=== PATIENT | female | born 1945 | race Caucasian/White ===

== ENCOUNTER 2016-08-02 20:21 | Inpatient (IN) | payer OTHER, MEDICARE ==
--- NOTE | 2016-08-02 20:49 | EDPHY ---
H & P Stated Complaint: converted from SVT Time Seen by Provider: 08/02/16 20:45 HPI/ROS: CHIEF COMPLAINT: Palpitations after shoveling snow HISTORY OF PRESENT ILLNESS: The patient is referred to the emergency department from [facility]. She reportedly developed palpitations after shoveling snow this afternoon. She had no complaints of chest pain or shortness of breath. She initially went to her primary care provider who ultimately refer the patient to the emergency department in [place]. While she was at the emergency department in [place] the patient was noted to be in a possible SVT. The patient received 6 mg and 12 mg of adenosine. She appeared to be an atrial arrhythmia versus sinus tachycardia following that intervention. Additionally, the patient was given the atenolol. The patient's heart rate never did couple 0 120. She was also noted to have some ST segment depression. The patient was also noted to have an indeterminately elevated troponin of 0.216. Given the sum total of these findings, the patient was referred to our institution for inpatient admission at cardiac evaluation. At the time of my interview, the patient is now in a normal sinus rhythm in the 60s. She continues to deny any chest pain or shortness of breath. I reviewed her past medical records. REVIEW OF SYSTEMS: A comprehensive 10 point review of systems is otherwise negative aside from elements mentioned in the history of present illness. - Personal History Current Tetanus/Diphtheria Vaccine: Yes Current Tetanus Diphtheria and Acellular Pertussis (TDAP): Yes - Medical/Surgical History Hx Asthma: No Hx Chronic Respiratory Disease: No Hx Diabetes: No Hx Cardiac Disease: Yes Hx Renal Disease: No Hx Cirrhosis: No Hx Alcoholism: No Hx HIV/AIDS: No Hx Splenectomy or Spleen Trauma: No Other PMH: PMH: Colitis, Anxiety, hypothyriodism, dizziness, vertigo, palpitations. PSH: n/a - Social History Smoking Status: Former smoker - Physical Exam Exam: General Appearance: Alert, no distress Eyes: Pupils equal and round no pallor or injection ENT, Mouth: Mucous membranes moist Respiratory: There are no retractions, lungs are clear to auscultation Cardiovascular: Regular rate and rhythm Gastrointestinal: Abdomen is soft and nontender, no masses, bowel sounds normal Neurological: A&O, normal motor function, normal sensory exam, normal cranial nerves Skin: Warm and dry, no rashes Musculoskeletal: Neck is supple nontender Extremities: symmetrical, full range of motion Psychiatric: Patient is oriented X 3, there is no agitation Constitutional: Initial Vital Signs Temperature (C) 37.4 C 08/02/16 20:35 Heart Rate 65 08/02/16 20:35 Respiratory Rate 18 08/02/16 20:35 Blood Pressure 172/97 H 08/02/16 20:35 O2 Sat (%) 95 08/02/16 20:35 O2 Delivery Mode Room Air Allergies/Adverse Reactions: NSAIDS (Non-Steroidal Anti-Inflamma Allergy (Verified 08/02/16 20:39) Home Medications: Medication Instructions Recorded Atenolol [Tenormin 25 mg (*)] 37.5 mg PO DAILY 08/02/16 LORazepam [Ativan (*)] 0.5 - 1 mg PO TID PRN 08/02/16 Omeprazole 20 mg PO DAILY 08/02/16 Polyvinyl Alcohol [Artificial 2 drop EACHEYE QID PRN 08/02/16 Tears] Medical Decision Making - Diagnostics EKG Interpretation: EKG: Complete interpretation has been separately recorded in the [employer] archive. Summary impression: Sinus rhythm, no ST segment elevation, minimal depression noted in lead III. ED Course/Re-evaluation: I reviewed the patient's past medical records, she had a troponin of 0.216 noted at 5:30 a.m. this afternoon. A repeat troponin has been ordered. The patient was noted to have a slightly elevated TSH of 11.4. I will add on a T3 level. The patient did have a negative D-dimer test which I feel adequately excludes pulmonary embolism. Repeat EKG demonstrates no evidence of an arrhythmia or evidence of ST segment elevation myocardial infarction. The patient will be admitted to the hospital for observation this evening. I discussed the case with Dr. Ayala from the hospitalist service will admit the patient. Dr. Samuels from cardiology has already been notified by the referring Center at [place] and plans to see the patient tomorrow. Differential Diagnosis: Differential diagnosis considered includes atrial fibrillation, ventricular tachycardia, myocardial infarction, pulmonary embolism, acute coronary syndrome , SVT - Data Points Laboratory Results: 08/02/16 20:50 Troponin I Pending Departure - Departure Disposition: [facility] Inpatient Acute Clinical Impression: Tachycardia, Cardiac enzymes elevated Condition: Good
--- NOTE | 2016-08-02 20:51 | CPEKG ---
Heart Rate: 62 RR Interval: 968 P-R Interval: 216 QRSD Interval: 92 QT Interval: 432 QTC Interval: 439 P [place]: 81 QRS [place]: 60 T Wave [place]: 30 EKG Severity - NORMAL ECG - EKG Impression: SINUS RHYTHM Electronically Signed By: Von Meyers 02-Aug-2016 21:03:00
[2016-08-02 21:22] LABS: TROPONIN I 0.389 ng/mL (0-0.034)
[2016-08-02 23:08] LABS: % IMMATURE GRANULYOCYTES 0.3 % (0.0-1.1); ABSOLUTE IMMATURE GRANULOCYTES 0.02 10^3/uL (0.00-0.10); ADD DIFF? NO; ADD MORPH? NO; ADD SCAN? NO; ATYPICAL LYMPHOCYTE FLAG 10 (0-99); FRAGMENT RBC FLAG 0 (0-99); HEMATOCRIT 38.7 % (38.0-47.0); HEMOGLOBIN 13.7 g/dL (12.6-16.3); LEFT SHIFT FLG 0 (0-99); LIPEMIA HEMOLYSIS FLAG 90 (0-99); MEAN CELL HEMOGLOBIN 34.8 pg (27.9-34.1); MEAN CELL HEMOGLOBIN CONCENTR. 35.4 g/dL (32.4-36.7); MEAN CELL VOLUME 98.2 fL (81.5-99.8); MEAN PLATELET VOLUME 8.7 fL (8.7-11.7); PLATELET CLUMPS FLAG 0 (0-99); PLATELET COUNT 263 10^3/uL (150-400); RED BLOOD CELL COUNT 3.94 10^6/uL (4.18-5.33); RED CELL DISTRIBUTION WIDTH 11.4 % (11.5-15.2)
[2016-08-02 23:21] LABS: ANION GAP 11 mEq/L (8-16); CALCIUM 8.8 mg/dL (8.5-10.4); CARBON DIOXIDE 23 mEq/l (22-31); CHLORIDE 100 mEq/L (97-110); CREATININE 0.7 mg/dL (0.6-1.0); GLOMERULAR FILTRATION RATE > 60; GLUCOSE 103 mg/dL (70-100); MAGNESIUM 1.9 mg/dL (1.6-2.3); POTASSIUM 4.3 mEq/L (3.5-5.2); SODIUM 134 mEq/L (134-144)
[2016-08-02] MEDS ORDERED: ONDANSETRON 4 MG/2 ML VIAL IVP PRN (23:39)
[2016-08-02] MEDS ORDERED: ONDANSETRON DISINTEGRATING 4 MG TAB PO PRN (23:39)
[2016-08-02] MEDS ORDERED: LORazepam 0.5 MG TAB PO PRN (23:39)
[2016-08-02] MEDS ORDERED: NS 1,000 ML IV SCH (23:45)
[2016-08-03] MEDS: ENOXAPARIN 60 MG/0.6 ML SYR SC SCH ×3 (00:14→16:01)
[2016-08-03 00:45] LABS: COLOR YELLOW; LEUKOCYTE ESTERASE,URINE TRACE (NEGATIVE); NITRITE,URINE NEGATIVE (NEGATIVE)
--- NOTE | 2016-08-03 03:37 | PDGENHP ---
History and Physical - Chief Complaint palpitations - History of Present Illness Pt is 71/F with of HTN and anxiety who presented to the ED with heart palpitations after shoveling snow earlier today. She describes it as pounding sensation in her substernal region radiating to her neck. Denies any associated headache, syncope or dizziness, chest pain, shortness of breath or nausea. She took 1mg lorazepam by mouth which did not improve her symptoms. She then visited [facility] medical clinic, was transferred to urgent care, where vital signs were significant for tachycardia, so she was then transferred to the [place] [facility]. Upon arrival to the [place] [facility], VS were significant for HR 120s-140s, BP 160s /90s. EKG revealed a narrow complex tachycardia, with evidence of ST depressions inferiorly. Valsalva movements attempted without success, so she was given 1L NS, 6mg and then 12 mg adenosine and then her home dose of atenolol with improvement of HR to 60 range. Repeat EKG revealed normal sinus rhythm. Labs revealed indeterminately elevated troponin (0.212), otherwise normal CBC, BMP and CXR. Patient was then given Aspirin and treatment dosed lovenox and transferred to the [facility] ED. Upon arrival to the [facility] ED, patients VS remain wnl (HR 60s, BP stable, afebrile) . Repeat troponin had slightly uptrended. She was then admitted to the hospitalist service for further management. History Information - Allergies/Home Medication List Allergies/Adverse Reactions: NSAIDS (Non-Steroidal Anti-Inflamma Allergy (Verified 08/02/16 20:39) Home Medications: Atenolol [Tenormin 25 mg (*)] 37.5 mg PO DAILY 08/02/16 [Last Taken 08/02/16] LORazepam [Ativan (*)] 0.5 - 1 mg PO TID PRN 08/02/16 [Last Taken 08/02/16 16: 00 0.5mg] Omeprazole 20 mg PO DAILY 08/02/16 [Last Taken 08/02/16] Polyvinyl Alcohol [Artificial Tears] 2 drop EACHEYE QID PRN 08/02/16 [Last Taken 08/02/16] I have personally reviewed and updated: family history, medical history, social history, surgical history - Past Medical History Additional medical history: Hypertension. GERD. Microscopic colitis. Anxiety disorder. History of BPPV - Surgical History Additional surgical history: Tubal ligation - Family History Additional family history: Father: Mi at 70 - Social History Smoking Status: Former smoker (Distant history of smoking, quit 40 years ago) Alcohol Use: None Drug Use: None Additional social history: Patient lives in [place] alone, is independent in all ADLs. Daughter is rn case manager who works at [employer] Review of Systems ROS: 10pt was reviewed & negative except for what was stated in HPI & below Physical Exam Temp Pulse Resp BP Pulse Ox 36.6 C 66 16 152/89 H 95 08/03/16 00:00 08/03/16 00:00 08/03/16 00:00 08/03/16 00:00 08/03/16 00:00 Constitutional: no apparent distress, appears nourished, not in pain Eyes: PERRL, anicteric sclera, EOMI Ears, Nose, Mouth, Throat: moist mucous membranes, hearing normal, ears appear normal, no oral mucosal ulcers Cardiovascular: regular rate and rhythym, no murmur, rub, or gallop, pulses symmetric bilaterally, No JVD, No tachycardia, No edema Peripheral Pulses: 2+: dorsalis-pedis (R), dorsalis-pedis (L) Respiratory: no respiratory distress, no rales or rhonchi, clear to auscultation Gastrointestinal: normoactive bowel sounds, soft, non-tender abdomen, no palpable masses Genitourinary: no bladder fullness, no bladder tenderness Skin: warm, normal color, no rashes or abrasions, no fluctuance, No mottled Musculoskeletal: full muscle strength, no muscle tenderness, normal joint ROM, no joint effusions Neurologic: AAOx3, sensation intact bilaterally, CN II-XII Intact, No weakness, No numbness Psychiatric: interacting appropriately, not anxious, not encephalopathic, thought process linear Lab Data & Imaging Review 08/03/16 04:11 08/02/16 23:01 WBC 7.37 10^3/uL (3.80-9.50) 08/02/16 23:01 RBC 3.94 10^6/uL (4.18-5.33) L 08/02/16 23:01 Hgb 13.7 g/dL (12.6-16.3) 08/02/16 23:01 Hct 38.7 % (38.0-47.0) 08/02/16 23: MCV 98.2 fL (81.5-99.8) 08/02/16 23: MCH 34.8 pg (27.9-34.1) H 08/02/16 23: MCHC 35.4 g/dL (32.4-36.7) 08/02/16 23: RDW 11.4 % (11.5-15.2) L 08/02/16 23: Plt Count 263 10^3/uL (150-400) 08/02/16 23: MPV 8.7 fL (8.7-11.7) 08/02/16 23: Neut % (Auto) 67.6 % (39.3-74.2) 08/02/16 23: Lymph % (Auto) 22.9 % (15.0-45.0) 08/02/16 23: [place] % (Auto) 7.9 % (4.5-13.0) 08/02/16 23: Eos % (Auto) 0.4 % (0.6-7.6) L 08/02/16 23: Baso % (Auto) 0.9 % (0.3-1.7) 08/02/16 23: Nucleat RBC Rel Count 0.0 % (0.0-0.2) 08/02/16 23: Absolute Neuts (auto) 4.98 10^3/uL (1.70-6.50) 08/02/16 23: Absolute Lymphs (auto) 1.69 10^3/uL (1.00-3.00) 08/02/16 23: Absolute Monos (auto) 0.58 10^3/uL (0.30-0.80) 08/02/16 23: Absolute Eos (auto) 0.03 10^3/uL (0.03-0.40) 08/02/16 23: Absolute Basos (auto) 0.07 10^3/uL (0.02-0.10) 08/02/16 23: Absolute Nucleated RBC 0.00 10^3/uL (0-0.01) 08/02/16 23:01 Immature Gran % 0.3 % (0.0-1.1) 08/02/16 23:01 Immature Gran # 0.02 10^3/uL (0.00-0.10) 08/02/16 23:01 Sodium 134 mEq/L (134-144) 08/02/16 23:01 Potassium 4.3 mEq/L (3.5-5.2) 08/02/16 23:01 Chloride 100 mEq/L (97-110) 08/02/16 23:01 Carbon Dioxide 23 mEq/l (22-31) 08/02/16 23:01 Anion Gap 11 mEq/L (8-16) 08/02/16 23:01 BUN 13 mg/dL (7-23) 08/02/16 23:01 Creatinine 0.7 mg/dL (0.6-1.0) 08/02/16 23:01 Estimated GFR > 60 08/02/16 23:01 Glucose 103 mg/dL (70-100) H 08/02/16 23:01 Calcium 8.8 mg/dL (8.5-10.4) 08/02/16 23:01 Magnesium 1.9 mg/dL (1.6-2.3) 08/02/16 23:01 Troponin I 0.389 ng/mL (0-0.034) H 08/02/16 20:50 Free T3 4.96 pg/mL (2.77-5.27) 08/02/16 23:01 Total T3 1.250 ng/mL (0.970-1.690) 08/02/16 23:01 Urine Color YELLOW 08/03/16 00:15 Urine Appearance CLEAR 08/03/16 00:15 Urine pH 7.0 (5.0-7.5) 08/03/16 00:15 Ur Specific [place] 1.010 (1.002-1.030) 08/03/16 00:15 Urine Protein NEGATIVE (NEGATIVE) 08/03/16 00:15 Urine Ketones 1+ (NEGATIVE) H 08/03/16 00:15 Urine Blood NEGATIVE (NEGATIVE) 08/03/16 00:15 Urine Nitrate NEGATIVE (NEGATIVE) 08/03/16 00:15 Urine Bilirubin NEGATIVE (NEGATIVE) 08/03/16 00:15 Urine Urobilinogen NEGATIVE EU (0.2-1.0) 08/03/16 00:15 Ur Leukocyte Esterase TRACE (NEGATIVE) H 08/03/16 00:15 Urine RBC 1-3 /hpf (0-3) 08/03/16 00:15 Urine WBC 3-5 /hpf (0-3) H 08/03/16 00:15 Ur Epithelial Cells TRACE /lpf (NONE-1+) 08/03/16 00:15 Urine Glucose NEGATIVE (NEGATIVE) 08/03/16 00:15 Visualized and Interpreted Chest x-ray results: Yes Chest X-Ray results: normal (CD in chart) Visualized and Interpreted EKG results: Yes EKG additional interpertation: Initially [place] EKG: Narrow complex tachycardia @ [address] depressions in V4-V6, II, III, aVF. [facility] EKG: NSR at 62 bpm, normalization of all ST/T wave changes seen in first EKG Assessment & Plan Assessment: Patient is a 71-year-old female with history of hypertension, anxiety disorder, GERD who presents to the ED complaining of palpitations. Was found to be in narrow complex tachycardia to the 130 range with associated ischemic EKG changes and elevation in troponin. Tachyarrhythmia resolved with adenosine and EKG changes resolved . Plan: #narrow complex tachycardia Exertion induced tachycardia with symptoms of palpitations. Has resulted in ischemic EKG changes and elevated troponin. EKG abnormalities resolved with improvement in HR. PE ruled out with negative D-dimer, no obvious signs of infection or sepsis. - TTE to assess for wall motion abnormalities - trend troponins, repeat EKG #type 2 NSTEMI Trop 0.212 -> 0.389. Likely demand ischemia due to tachycardia, as pt never experienced chest pain. ST depressions seen on initial EKGs have normalized with improvement in heart rate. -anticoagulant (lovenox initiated in [place] ED), ASA and statin -cardiology consult #Elevated TSH TSH elevated to 11, however free T3/T4 normal. Pt without any hypothyroid like symptoms. Consistent with subclinical hypothyroidism. #HTN, chronic BP stable throughout presentation. Will continue home atenolol. Diet: NPO DVT prophylaxis, on systemic anticoagulation Full code
[2016-08-03 04:52] LABS: % IMMATURE GRANULYOCYTES 0.2 % (0.0-1.1); ABSOLUTE IMMATURE GRANULOCYTES 0.01 10^3/uL (0.00-0.10); ADD DIFF? NO; ADD MORPH? NO; ADD SCAN? NO; ATYPICAL LYMPHOCYTE FLAG 10 (0-99); FRAGMENT RBC FLAG 10 (0-99); HEMATOCRIT 37.9 % (38.0-47.0); HEMOGLOBIN 12.8 g/dL (12.6-16.3); LEFT SHIFT FLG 0 (0-99); LIPEMIA HEMOLYSIS FLAG 90 (0-99); MEAN CELL HEMOGLOBIN 34.3 pg (27.9-34.1); MEAN CELL HEMOGLOBIN CONCENTR. 33.8 g/dL (32.4-36.7); MEAN CELL VOLUME 101.6 fL (81.5-99.8); MEAN PLATELET VOLUME 9.1 fL (8.7-11.7); PLATELET CLUMPS FLAG 10 (0-99); PLATELET COUNT 280 10^3/uL (150-400); RED BLOOD CELL COUNT 3.73 10^6/uL (4.18-5.33); RED CELL DISTRIBUTION WIDTH 11.5 % (11.5-15.2)
[2016-08-03 05:01] LABS: APTT 41.7 SEC (23.0-38.0); INR 1.1 (0.83-1.16); PROTIME(PATIENT) 14.1 SEC (12.0-15.0)
[2016-08-03 05:26] LABS: ANION GAP 9 mEq/L (8-16); CALCIUM 8.5 mg/dL (8.5-10.4); CARBON DIOXIDE 23 mEq/l (22-31); CHLORIDE 103 mEq/L (97-110); CREATININE 0.7 mg/dL (0.6-1.0); GLOMERULAR FILTRATION RATE > 60; GLUCOSE 91 mg/dL (70-100); POTASSIUM 4.1 mEq/L (3.5-5.2); SODIUM 135 mEq/L (134-144)
[2016-08-03 05:34] LABS: TROPONIN I 0.683 ng/mL (0-0.034)
[2016-08-03 05:45] LABS: CREATINE KINASE-MB FRACTION 3.85 ng/mL (0-3.19)
--- NOTE | 2016-08-03 06:33 | CPEKG ---
Heart Rate: 58 RR Interval: 1034 P-R Interval: 220 QRSD Interval: 90 QT Interval: 468 QTC Interval: 460 P [place]: 73 QRS [place]: 68 T Wave [place]: 33 EKG Severity - ABNORMAL ECG - EKG Impression: SINUS RHYTHM EKG Impression: FIRST DEGREE AV BLOCK EKG Impression: PROBABLE LEFT ATRIAL ABNORMALITY EKG Impression: BORDERLINE T ABNORMALITIES, ANTERIOR LEADS Electronically Signed By: Antoine Samuels 03-Aug-2016 14:19:56
[2016-08-03 06:52] LABS: CK-MB INTERPRETATION NEGATIVE (NEGATIVE)
[2016-08-03 11:21] LABS: ALANINE AMINOTRANSFERASE 33 IU/L (9-52); ALBUMIN 3.7 g/dL (3.5-5.0); ALKALINE PHOSPHATASE 57 IU/L (38-126); ASPARTATE AMINOTRANSFERASE 30 IU/L (14-46); BILIRUBIN,TOTAL 0.6 mg/dL (0.1-1.4); BILIRUBIN-CONJUGATED 0.3 mg/dL (0.0-0.5); BILIRUBIN-UNCONJUGATED 0.3 mg/dL (0.0-1.1); CHOLESTEROL 187 mg/dL (140-220); CHOLESTEROL/HDL RATIO 2.53 RATIO (1.00-4.44); HIGH DENSITY LIPOPROTEIN 74 mg/dL (40-85); LDL/HDL RATIO 1.23 RATIO (1.00-3.22); LOW DENSITY LIPOPROTEIN 91 mg/dL (80-100); NON-HIGH DENSITY LIPOPROTEIN 113 mg/dL (90-129); TOTAL PROTEIN 6.3 g/dL (6.3-8.2); TRIGLYCERIDE 113 mg/dL (35-135); VERY LOW DENSITY LIPOPROTEINS 22 mg/dL (8-25)
--- NOTE | 2016-08-03 11:41 | ECHO ---
[id number] + + [address] : : [place] [address] : : [phone] + + Adult Echocardiographic Report + --------+ :Name: Temitope VILLAFANA Date: 08/03/2016 10:20 AM : : Hospital Admission Number: [id number] Locat ion: 213: :: 1945 Gender: Female Height: 64 in : :Age: 71 yrs Race: WH Weight: 138 l b : :Reason For Study: Eval LV Fx : : BSA: 1.7 mete rs2 : :History: SVT : + --------+ MMode/2D Measurements & Calculations IVSd: 0.88 cm LVIDd: 3.8 cm FS: 35.0 % Ao root diam: 2.5 cm LVPWd: 1.0 cm LVIDs: 2.5 cm EDV(Teich): 61.4 ml ACS: 1.6 cm ESV(Teich): 21.4 ml EF(Teich): 65.0 % Normal Measurement Values: + + :LVIDd (3.5-5.7cm) IVSd (0.6-1.1cm) LVPWd (0.6-1.1cm) Aortic Root (2.0-3.7cm)Left Atrium (1.5-4.0cm): :LV Vol(d) (76-115ml) LV Vol(s) (29-48ml) Ejec Fraction (50-65%)PV Sinan (0.6- 1.2m/s) TV Sinan (0.4-1.0m/s) : :MV E Sinan (0.8-1.0m/s)MV A Sinan (0.3-1.0m/s)LVOT Sinan (0.7-1.2m/s) Asc Ao Sinan ( 0.9-1.8m/s) : + + Doppler Measurements & Calculations MV E max sinan: Ao V2 max: LV V1 max: MR max sinan: 90.8 cm/sec 197.6 cm/sec 104.6 cm/sec 625.5 cm/sec MV A max sinan: Ao max PG: LV V1 max PG: MR max P.1 cm/sec 15.6 mmHg 4.4 mmHg 156.5 mmHg MV E/A: 0.86 PA V2 max: TR max sinan: 97.7 cm/sec 445.2 cm/sec PA max P.8 mmHg TR max P.3 mmHg RAP systole: 5.0 mmHg RVSP(TR): 84.3 mmHg Left Ventricle The left ventricle is normal in size. There is normal left ventricular wall thickness. The left ventricular ejection fraction is normal. There is Doppler evidence for diastolic dysfunction. Ejection Fraction = 65%. No regional wall motion abnormalities noted. Right Ventricle The right ventricle is normal in size and function. Atria The left atrial size is normal. Right atrial size is normal. Mitral Valve The mitral valve is normal in structure and function. There is no evidence of mitral valve prolapse. There is no mitral valve stenosis. There is mild mitral regurgitation. Tricuspid Valve Normal tricuspid valve. There is trace to mild tricuspid regurgitation. Right ventricular systolic pressure is normal. Aortic Valve The aortic valve is normal in structure and function. The aortic valve is trileaflet. There is no aortic stenosis. There is no aortic insufficiency. Pulmonic Valve The pulmonic valve is normal in structure and function. There is no pulmonic valvular regurgitation. Great Vessels The aortic root is normal size. Pericardium/Pleural There is no pericardial effusion. There is a fat pad seen. Conclusion A complete two-dimensional transthoracic echocardiogram was performed (2D, M-mode, Doppler and color flow Doppler). The left ventricular ejection fraction is normal. There is Doppler evidence for diastolic dysfunction. Ejection Fraction = 65%. No regional wall motion abnormalities noted. The right ventricle is normal in size and function. The mitral valve is normal in structure and function. There is mild mitral regurgitation. There is trace to mild tricuspid regurgitation. Right ventricular systolic pressure is normal. The aortic valve is normal in structure and function. The aortic valve is trileaflet. The pulmonic valve is normal in structure and function. There is no pulmonic valvular regurgitation. There is no pericardial effusion. Final Reading Physician: Kandy Dorantes signed on 08/03/2016 11:39 AM Performed By: Kyle Jennings RDCS
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
[2016-08-03] MEDS ORDERED: TEMAZEPAM 15 MG CAP PO PRN (15:03)
--- NOTE | 2016-08-03 15:32 | NM ---
Nuclear Medicine Myocardial Perfusion Scan (Rest Only) CLINICAL HISTORY: 71-year-old female inpatient with chest pain. Rule out myocardial ischemia. Radiopharmaceutical: 11.4 mCi of IV technetium 99m sestamibi (Cardiolite). TECHNIQUE: A resting study was performed earlier this morning and before a stress study and post stre ss scintigraphic imaging was acquired, the patient's serum troponins had doubled, and the patient was to be taken for cardiac catheterization. Images were acquired tomographically and reconstructed teddy g the standard cardiac axes using [facility] software. The resting study was not gated. Comparison Studies: None. FINDINGS: The resting images demonstrate a perfusion defect at the level of the left ventricular apex and also involving the inferolateral junction. Without corollary stress imaging, scintigraphic asses sment of myocardial ischemia cannot be made. IMPRESSION: The rest study demonstrates left ventricular apical and inferolateral junction perfusion defects. The patient was taken to heart catheterization without a stress study because of doubling serum tropo khalida levels.
[2016-08-03] MEDS ORDERED: ENOXAPARIN 40 MG/0.4 ML SYR SC SCH (16:00)
[2016-08-03] MEDS: LISINOPRIL 10 MG TAB PO SCH (16:01)
[2016-08-03] MEDS: LORazepam 1 MG TAB PO PRN ×2 (18:19→22:31)
[2016-08-03] MEDS: ACETAMINOPHEN 325 MG TAB PO PRN (18:19)
--- NOTE | 2016-08-03 19:44 | HOSPPROG ---
Hospitalist Progress Note Assessment/Plan: * SVT -atenolol * NQWMI - significant troponin bump -d/w Dariana MONTERO - proceed with cardiac cath -ASA, lovenox * Subclinical hypothyroidism * Anxiety - home ativan doses * GERD - continue PPI Subjective: Doesn't feel right. Feels like she did before she went into SVT. Objective: Vital Signs Temp Pulse Resp BP Pulse Ox 36.6 C 64 16 143/66 H 93 08/03/16 16:00 08/03/16 16:00 08/03/16 16:00 08/03/16 16:01 08/03/16 16:00 Laboratory Results 08/03/16 04:11 08/03/16 04:11 PT 14.1 SEC (12.0-15.0) 08/03/16 04:11 INR 1.10 (0.83-1.16) 08/03/16 04:11 ECHO reviewed: unremarkable, Nl EF - Physical Exam Constitutional: no apparent distress, appears nourished, not in pain Cardiovascular: regular rate and rhythym, no murmur, rub, or gallop Respiratory: no respiratory distress, no rales or rhonchi, clear to auscultation Gastrointestinal: normoactive bowel sounds, soft, non-tender abdomen, no palpable masses Skin: no rashes or abrasions, no fluctuance, no induration Neurologic: AAOx3, sensation intact bilaterally Psychiatric: interacting appropriately, not anxious, not encephalopathic, thought process linear ICD10 Worksheet Patient Problems: Problems Problem Status Diagnosed Cardiac enzymes elevated Acute Tachycardia Acute
[2016-08-03] MEDS: ATENOLOL 25 MG TAB PO SCH (20:23)
[2016-08-04 05:07] LABS: % IMMATURE GRANULYOCYTES 0.2 % (0.0-1.1); ABSOLUTE IMMATURE GRANULOCYTES 0.01 10^3/uL (0.00-0.10); ADD DIFF? NO; ADD MORPH? NO; ADD SCAN? NO; ATYPICAL LYMPHOCYTE FLAG 20 (0-99); FRAGMENT RBC FLAG 0 (0-99); HEMATOCRIT 37.6 % (38.0-47.0); HEMOGLOBIN 12.9 g/dL (12.6-16.3); LEFT SHIFT FLG 0 (0-99); LIPEMIA HEMOLYSIS FLAG 90 (0-99); MEAN CELL HEMOGLOBIN 34.1 pg (27.9-34.1); MEAN CELL HEMOGLOBIN CONCENTR. 34.3 g/dL (32.4-36.7); MEAN CELL VOLUME 99.5 fL (81.5-99.8); MEAN PLATELET VOLUME 9.1 fL (8.7-11.7); PLATELET CLUMPS FLAG 0 (0-99); PLATELET COUNT 253 10^3/uL (150-400); RED BLOOD CELL COUNT 3.78 10^6/uL (4.18-5.33); RED CELL DISTRIBUTION WIDTH 11.6 % (11.5-15.2)
[2016-08-04 05:13] LABS: APTT 29.4 SEC (23.0-38.0); INR 1.02 (0.83-1.16); PROTIME(PATIENT) 13.3 SEC (12.0-15.0)
[2016-08-04 05:32] LABS: ANION GAP 9 mEq/L (8-16); CALCIUM 8.7 mg/dL (8.5-10.4); CARBON DIOXIDE 23 mEq/l (22-31); CHLORIDE 104 mEq/L (97-110); CREATININE 0.7 mg/dL (0.6-1.0); GLOMERULAR FILTRATION RATE > 60; GLUCOSE 88 mg/dL (70-100); POTASSIUM 3.9 mEq/L (3.5-5.2); SODIUM 136 mEq/L (134-144)
[2016-08-04 05:35] LABS: TROPONIN I 0.565 ng/mL (0-0.034)
[2016-08-04] MEDS ORDERED: NITROGLYCERIN 0.4 MG BTL SL PRN (06:00)
[2016-08-04] MEDS ORDERED: NS 1,000 ML IV ONE (06:00)
[2016-08-04] MEDS ORDERED: diphenhydrAMINE 25 MG CAP PO ONE (08:00)
[2016-08-04] MEDS ORDERED: ASPIRIN EC 325 MG TAB PO ONE (08:00)
[2016-08-04] MEDS ORDERED: DIAZEPAM 5 MG TAB PO ONE (08:00)
[2016-08-04] MEDS: ATENOLOL 25 MG TAB PO SCH ×2 (08:35→20:08)
[2016-08-04] MEDS: LISINOPRIL 10 MG TAB PO SCH (08:35)
[2016-08-04] MEDS: PANTOPRAZOLE SODIUM 40 MG TAB PO SCH (08:35)
[2016-08-04] MEDS ORDERED: ATENOLOL 25 MG TAB PO SCH (09:00)
[2016-08-04] MEDS ORDERED: LIDOCAINE 1% 30 ML SDV ONE (09:04)
[2016-08-04] MEDS ORDERED: HEPARIN 10,000 UNIT/10 ML MDV ONE (09:05)
[2016-08-04] MEDS ORDERED: MIDAZOLAM 2 MG/2 ML VIAL ONE (09:05)
[2016-08-04] MEDS ORDERED: fentaNYL 100 MCG/2 ML INJ ONE (09:05)
[2016-08-04] MEDS ORDERED: IOPAMIDOL (ISOVUE-370) 150 ML BTL IV ONE ×2 (09:06→10:07)
[2016-08-04] MEDS ORDERED: VERAPAMIL 5 MG/2 ML VIAL ONE (09:06)
--- NOTE | 2016-08-04 10:01 | PDDXCAT ---
Diagnostic Cath Note - . Date: 08/04/16 Attorney Lawyer: Juwan Indication: other (Elevated troponin, abnormal EKG, history of NSVT) - Procedure Access: left wrist (A plethysmography trace assisted Chris's Test was used to document dual artery supply to the hand and index finger prior to access.) Procedure: left heart catheterization, coronary angiography, left ventriculogram - Materials Left Heart Cath size: 5F Left Heart Cath materials: JL3.5, JR4.0, pigtail - Findings-Left Heart Catheterization LM: 6 mm in size. Trifurcates into an LAD, ramus and dominant left circumflex system. LAD: ~4 mm in size without evidence of flow-limiting disease and ERNESTO III flow throughout. LCX: Dominant left cirumflex, ~4 mm in size. There is no evidence of flow- limiting disease with ERNESTO III flow throughout. RCA: Small, non-dominant right system, ~3 mm in size. No evidence of flow- limiting disease with ERNESTO III flow. Ramus: Small ramus vessel without evidence of disease and ERNESTO III flow throughout. EDP: 22 mmHg LVEF: 65% Wall motion: No wall motion abnormalities identified on LVG. The visualized protion of the thoracic aorta revealed three sinuses of Valsalva. There was no evidence of aneurysm or dissection. Complications: None Estimated blood loss: <50ml Closure method: TR Band Assessment: No evidence of coronary artery disease or flow-limiting abnormality/ obstruction. The patient had a normal ejection fraction at 65% with no wall motion abnormalities were identified on left ventriculogram. The elevated troponin and abnormal EKG is likely caused by demand ischemia related to the patient's tachycardia. 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 If she has recurrent episodes of tachycardia, the first step would be to consider a calcium channel antagonist for treatment of her HTN with Cardizem or Verapamil. Beta blockers She could be offered an EP study and ablation as a first line treatment; however, this is the first episode so an ablation at this point in time may be overly aggressive. I did explain several techniques/vagal maneuver methods to terminate the SVT if she does have recurrent episodes. Plan: As above. Patient Problems: Problems Problem Status Diagnosed Cardiac enzymes elevated Acute Tachycardia Acute
[2016-08-04] MEDS ORDERED: ATROPINE SULFATE 1 MG/10 ML SYR IVP PRN (11:22)
--- NOTE | 2016-08-04 12:00 | CPEKG ---
Heart Rate: 50 RR Interval: 1200 P-R Interval: 220 QRSD Interval: 86 QT Interval: 484 QTC Interval: 442 P Jean: 73 QRS Jean: 69 T Wave Jean: 40 EKG Severity - ABNORMAL ECG - EKG Impression: SINUS RHYTHM EKG Impression: FIRST DEGREE AV BLOCK EKG Impression: PROBABLE LEFT ATRIAL ABNORMALITY Electronically Signed By: Antoine Samuels 04-Aug-2016 15:05:40
--- NOTE | 2016-08-04 12:10 | PDCARPN ---
Cardiology Progress Note Chief Complaint: SVT/ elevated trop/ abn ecg Assessment/Plan: Assessment: 71 y/o F PMH htn and anxiety with episodes of SVT that lead to admission. Found to have troponin elevation and STD when in SVT. #. troponin elevation: with associated dyspnea and chest heaviness LHC with normal cors continue primary prevention #. SVT: establish cardiology care in [place], particularly if she is having more episodes of palpitations she may also follow up with [facility] EP Pt OK to d/c from cardiac perspective. 08/04/16 12:08 Subjective: Has headache. Objective: Vital Signs (8 Hrs) Temp Pulse Resp BP Pulse Ox 08/04/16 08:00 98.2 F 62 16 158/76 H 91 L Intake/Output (24 Hrs) 08/03/16 08/04/16 08/05/16 05:59 05:59 05:59 Intake Total 500 Balance 500 Intake: Oral (ml) 500 Other: Intake Quantity Yes Sufficient Number of Voids Toilet 1 2 Result Diagrams: 08/04/16 04:01 08/04/16 04:01 Cardiac Labs: Cardiac Lab Results (72 Hrs) 08/04/16 08/03/16 08/03/16 04:01 13:10 04:11 CK-MB (CK-2) Fraction 3.85 H Troponin I 0.565 H 1.130 H 0.683 H - Physical Exam Constitutional: healthy appearing, no apparent distress Eyes: PERRL, anicteric sclera ICD10 Worksheet Patient Problems: Problems Problem Status Diagnosed Cardiac enzymes elevated Acute Tachycardia Acute
[2016-08-04] MEDS: ENOXAPARIN 60 MG/0.6 ML SYR SC SCH (12:18)
[2016-08-04] MEDS ORDERED: ATENOLOL 25 MG TAB PO ONE (13:39)
[2016-08-04] MEDS: ACETAMINOPHEN 325 MG TAB PO PRN (15:19)
[2016-08-04] MEDS: ACET/CAFFEINE/BUTA FIORICET 1 EACH TAB PO PRN ×2 (16:55→23:21)
--- NOTE | 2016-08-04 18:58 | HOSPPROG ---
Hospitalist Progress Note Assessment/Plan: * SVT -increase atenolol -monitor heart rate closely given relative bradycardia * NQWMI - strain due to rapid heart rate -cardiac cath negative * Subclinical hypothyroidism * Anxiety - home ativan doses * GERD - continue PPI * Headache -Fioricet prn Subjective: Feels terrible Dizzy and lightheaded, headache Objective: Vital Signs Temp Pulse Resp BP Pulse Ox 36.6 C 51 L 20 148/77 H 95 08/04/16 17:06 08/04/16 17:06 08/04/16 17:06 08/04/16 17:06 08/04/16 17:06 Laboratory Results 08/04/16 04:01 08/04/16 04:01 08/03/16 08/04/16 08/05/16 05:59 05:59 05:59 Intake Total 500 Balance 500 PT 13.3 SEC (12.0-15.0) 08/04/16 04:01 INR 1.02 (0.83-1.16) 08/04/16 04:01 EKG viewed, my personal interpretation is: NSR case d/w Dariana MONTERO - increase atenolol, watch bradycardia Cath report reviewed: no CAD - Physical Exam Constitutional: no apparent distress, appears nourished, not in pain Ears, Nose, Mouth, Throat: hearing normal Cardiovascular: No edema Respiratory: no respiratory distress Skin: no rashes or abrasions, no fluctuance, no induration Musculoskeletal: No abnormal gait Neurologic: AAOx3 Psychiatric: interacting appropriately, not encephalopathic, thought process linear, anxious, No agitated ICD10 Worksheet Patient Problems: Problems Problem Status Diagnosed Cardiac enzymes elevated Acute Tachycardia Acute
[2016-08-04] MEDS ORDERED: ACET/CAFFEINE/BUTA FIORICET 1 EACH TAB PO ONE (19:52)
[2016-08-04] MEDS: LORazepam 1 MG TAB PO PRN (22:30)
[2016-08-05 04:16] VITALS: TEMP 97.9
[2016-08-05] MEDS: ACET/CAFFEINE/BUTA FIORICET 1 EACH TAB PO PRN (05:52)
[2016-08-05 07:08] VITALS: BP 142/78; PULSE 53; RESP 16; O2SAT 92
[2016-08-05] MEDS ORDERED: TEARS/DEXTRAN 70/HYPROMELLOSE 15 ML OPHT.BTL EACHEYE PRN (07:54)
[2016-08-05] MEDS: PANTOPRAZOLE SODIUM 40 MG TAB PO SCH (08:46)
[2016-08-05] MEDS: LISINOPRIL 10 MG TAB PO SCH (08:46)
[2016-08-05] MEDS: ATENOLOL 25 MG TAB PO SCH (08:47)
[2016-08-05] MEDS: LORazepam 1 MG TAB PO PRN (08:56)
--- NOTE | 2016-08-05 23:47 | GDS ---
[f rep st] DISCHARGE SUMMARY DISCHARGE DIAGNOSES: 1. Supraventricular tachycardia. 2. Troponin elevation due to strain from rapid heart rate with negative cardiac catheterization. 3. Anxiety. 4. Gastroesophageal reflux disease. 5. Headache. HISTORY: The patient is a 71-year-old female who was shoveling snow when she developed severe palpit ations. She was found to be in SVT and 12 mg of adenosine eventually converted her back to normal si nus rhythm. With this episode she had a significant troponin bump up to 1.13. Cardiology saw her in consultation. They performed a cardiac catheterization which was negative for any coronary disease. This troponin elevation is due to the strain of her rapid heart rate. She had no recurrence throug hout her hospitalization here. Her atenolol has been increased to 25 mg p.o. twice daily. Outpatien t cardiac monitoring is recommended. She also developed a headache during this hospitalization which is consistent with headaches that she has had in the past. She has not, however, had these headaches for many years. She used to take Fi oricet with good results and that was initiated here. Headache was severe enough and caused some diz ziness that she did require an additional evening in the hospital for observation but felt well in th e morning of discharge. DISCHARGE MEDICATIONS: Please see computer record for full detailed list. NEW MEDICATIONS: 1. Atenolol increased to 25 mg p.o. twice daily. 2. Lisinopril 10 mg p.o. daily for hypertension. 3. Fioricet 1 tablet p.o. q.6 hours as needed. Ten tablets dispensed. DISCHARGE INSTRUCTIONS: 1. Outpatient Holter monitoring to rule out atrial flutter in which case anticoagulation will be ind icated. 2. The patient had a cardiac catheterization through the wrist with appropriate discharge instructio ns as indicated. Greater than 30 minutes' time was spent arranging this discharge. Patient seen and examined by me on the day of discharge. /[id number]/MODL
== END 2016-08-05 12:59 | disposition home or self-care (01) | DRG 287 ==
LOC: F2W 22:40 → OBSVTOIN 23:39
PROVIDERS: ADMIT Internal Medicine; ATTEND Internal Medicine
PROC: 4A023N7 Measurement of Cardiac Sampling and Pressure, Left Heart, Percutaneous Approach (ICD-10-PCS; principal; 2016-08-04)
PROC: B2151ZZ Fluoroscopy of Left Heart using Low Osmolar Contrast (ICD-10-PCS; principal; 2016-08-04)
PROC: B2111ZZ Fluoroscopy of Multiple Coronary Arteries using Low Osmolar Contrast (ICD-10-PCS; principal; 2016-08-04)
DX: I47.1 Supraventricular tachycardia (principal); R74.8 Abnormal levels of other serum enzymes; I10 Essential (primary) hypertension; E03.9 Hypothyroidism, unspecified; K21.9 Gastro-esophageal reflux disease without esophagitis; F41.9 Anxiety disorder, unspecified; R51 Headache
CPT/HCPCS: 84480-90; 84481-90; A9500; J1644; J1650; J2250; J3010; Q9967